=== PATIENT | male | born 1965 | race American Indian/Alaskan Native ===

== ENCOUNTER 2020-11-21 19:53 | Emergency (ER) | payer MEDICAID ==
[2020-11-21 21:51] LABS: Basophils # (Auto) 0.1 K/mm3 (0.0-0.1); Basophils % (Auto) 1.6 % (0.0-1.8); Eosinophils # (Auto) 0.1 K/mm3 (0.0-0.4); Eosinophils % (Auto) 1.9 % (0.0-4.3); Hematocrit 46.4 % (35.5-45.6); Hemoglobin 15.8 gm/dl (11.8-15.2); Lymphocytes # (Auto) 1.5 K/mm3 (1.2-5.4); Lymphocytes % (Auto) 33.3 % (13.4-35.0); Mean Corpuscular HGB Conc 34 % (32-34); Mean Corpuscular Volume 93 fl (84-94); Monocytes # (Auto) 0.5 K/mm3 (0.0-0.8); Monocytes % (Auto) 10.7 % (0.0-7.3); Platelet Count 180 K/mm3 (140-440)
[2020-11-21 21:56] LABS: BUN/Creatinine Ratio 11; Blood Urea Nitrogen 9 mg/dL (9-20); Calcium 9.1 mg/dL (8.4-10.2); Hemolysis Index 4
--- NOTE | 2020-11-21 23:18 | Emergency Department Report ---
ED Psych HPI - General Chief Complaint: Psych Stated Complaint: SI/HOMICIDAL/DETOX Time Seen by Provider: 11/21/20 23:10 Source: patient Mode of arrival: Ambulatory - History of Present Illness Initial Comments: 55-year-old male, history of bipolar disorder, presents to ED with suicidal ideation. Patient states, "My life just not worth living." Patient states he plans to jump off of a bridge. He reports crack cocaine and marijuana use. Patient also reports alcohol abuse. Patient states he is compliant with his psychiatric medications. MD Complaint: feels depressed -: unknown Associated Psychiatric Symptoms: depression, suicidal ideation Improves With: none Worsens With: none Context: recent alcohol abuse, recent drug abuse Associated Symptoms: denies other symptoms Treatments Prior to Arrival: none If Self Harm: has plan Details of Plan: Jump off of a bridge - Related Data Allergies Allergy/AdvReac Type Severity Reaction Status Date / Time Sulfa (Sulfonamide Allergy Rash Verified 11/21/20 21:03 Antibiotics) ED Review of Systems ROS: Stated complaint: SI/HOMICIDAL/DETOX Other details as noted in HPI Comment: All other systems reviewed and negative Psychiatric: suicidal thoughts ED Past Medical Hx - Past Medical History Previous Medical History?: Yes Hx Psychiatric Treatment: Yes ED Physical Exam - General Limitations: No Limitations General appearance: alert, in no apparent distress - Head Head exam: Present: atraumatic, normocephalic - Eye Eye exam: Present: normal appearance, EOMI - ENT ENT exam: Present: mucous membranes moist - Neck Neck exam: Present: normal inspection - Respiratory Respiratory exam: Present: normal lung sounds bilaterally. Absent: respiratory distress - Cardiovascular Cardiovascular Exam: Present: regular rate, normal rhythm - GI/Abdominal GI/Abdominal exam: Absent: distended - Extremities Exam Extremities exam: Present: normal inspection - Neurological Exam Neurological exam: Present: alert, oriented X3 - Psychiatric Psychiatric exam: Present: suicidal ideation - Skin Skin exam: Present: warm, dry, intact, normal color ED Course Vital Signs 11/21/20 11/22/20 11/22/20 21:33 01:41 03:24 Temperature 98 F Pulse Rate 88 112 H Respiratory 16 18 Rate Blood Pressure 144/89 126/90 [Right] O2 Sat by Pulse 98 97 98 Oximetry 11/22/20 11/22/20 11/23/20 07:35 19:36 08:16 Temperature 98.0 F 98.1 F 97.9 F Pulse Rate 72 61 83 Respiratory 20 18 20 Rate Blood Pressure 114/84 110/77 111/87 [Right] O2 Sat by Pulse 98 98 98 Oximetry 11/23/20 11/23/20 09:00 20:03 Temperature 97.9 F Pulse Rate 63 Respiratory 18 Rate Blood Pressure 128/91 [Right] O2 Sat by Pulse 98 98 Oximetry ED Medical Decision Making - Lab Data Result diagrams: 11/21/20 21:22 11/23/20 19:03 - Medical Decision Making 55-year-old male presents to ED with suicidal ideations. Patient reports drug and alcohol abuse. Labs reviewed, potassium slightly low, was replaced orally. Still awaiting urine for UA and urine drug screen. Otherwise, patient is medically clear for mental health evaluation. Will dispo per psych. Critical care attestation.: If time is entered above; I have spent that time in minutes in the direct care of this critically ill patient, excluding procedure time. ED Disposition Clinical Impression: Bipolar disorder Disposition: [address] [place] [address] Is pt being admited?: No Condition: Stable Referrals: JACQUI PACKER MD [Primary Care Provider] - 3-5 Days
[2020-11-21] MEDS ORDERED: POTASSIUM CHLORIDE ER 20 MEQ TAB PO ONE (23:19)
[2020-11-22 07:42] LABS: Bilirubin,Urine NEG (Negative); Blood,Urine NEG (Negative); Color,Urine Yellow (Yellow); Protein,Urine <15 mg/dL mg/dL (Negative); RBC,Urine < 1.0 /HPF (0.0-6.0); WBC,Urine < 1.0 /HPF (0.0-6.0)
[2020-11-22 07:45] LABS: Amphetamine Screen,Urine Negative; Benzodiazepines Screen,Urine Negative; Methadone Screen,Urine Negative; Opiate Screen,Urine Negative
[2020-11-22 08:16] LABS: Cannabinoid Screen,Urine Positive; Cocaine Screen,Urine Positive
--- NOTE | 2020-11-22 10:05 | Consultation ---
History of Present Illness - Reason for Consult Consult date: 11/22/20 Reason for consult: SI/HI, detox - History of Present Psychiatric Illness Rubin Lainez is a 55y/o male patient who endorses suicidal and homicidal thoughts. The patient says he has plans to jump in front of a bridge. He also says he needs detox from crack, marijuana and alcohol. He says he drinks a case of beer daily. He says he has a history of bipolar and takes abilify and elavil. He did not recall the dosages. The patient says he has taken the meds on and off. He denies hallucinations. PAST PSYCHIATRIC HISTORY: Diagnoses: Bipolar Suicide attempts or Self-harm behavior: Denies Prior psychiatric hospitalizations: yes Substance Abuse history: THC, crack, alcohol, nicotine Previous psychiatric medications tried: abilify, elavil Outpatient treatment: yes PAST MEDICAL HISTORY: None reported or document Family Psychiatric History: None reported or documented SOCIAL HISTORY Marital Status: Single Living Arrangements: homeless Employment Status: disabled Access to guns/weapons: denies Education: History of Abuse: denies Legal History: denies REVIEW OF SYSTEMS Constitutional: Negative for weight loss ENT: Negative for stridor Respiratory: Negative for cough or hemoptysis All other systems reviewed and are negative MENTAL STATUS EXAMINATION General Appearance and Behavior: Age appropriate, good hygiene, wearing appropriate clothes, calm and cooperative polite with questioning. Cooperation: engaged Psychomotor Behavior: Psychomotor normal Mood: depressed Affect and affective range: congruent with stated mood Thought Process: goal directed Thought Content: SI/HI Speech: Normal volume, Regular rate and rhythm, Suicidal Ideation: yes with plan to jump off bridge Homicidal Ideation: Yes Hallucinations: Denies Delusions: None elicited Impulse Control: Unimpaired Insight and Judgment: Limited Memory: Limited Attention: attentive Orientation: a/o Assessment and Plan (1) Bipolar Disorder Current Visit: Yes Status: Acute Treatment Plan 1013 Abilify 5mg po daily Elavil 10mg po qhs Thiamine 100mg po daily Multivit daily Folic 1mg po daily CIWA protocol The patient to comply with previously prescribed medications Risks, benefits and alternatives of medications discussed with the patient, questions answered and consent obtained from patient. PSYCHOTHERAPY: Supportive psychotherapy provided MEDICAL: Per primary team DELIRIUM PRECAUTIONS: Please re-orient patient frequently, keep lights on during the day, and minimize benzodiazepines and opiates as these medications could worsen patient's confusion. TALENT ACQUISITION LEAD: Defer to primary DISPOSITION: Recommend acute inpatient psychiatric hospitalization at this time. FOLLOW-UP: Will follow Thank you for the consult. Please contact with any questions and/or concerns. Medications and Allergies Allergies Allergy/AdvReac Type Severity Reaction Status Date / Time Sulfa (Sulfonamide Allergy Rash Verified 11/21/20 21:03 Antibiotics) Mental Status Exam - Vital signs Last Vital Signs Temp 98.0 F 11/22/20 07:35 Pulse 72 11/22/20 07:35 Resp 20 11/22/20 07:35 BP 114/84 11/22/20 07:35 Pulse Ox 98 11/22/20 07:35 Results Result Diagrams: 11/21/20 21:22 11/21/20 21:22 Abnormal lab results 11/21/20 11/21/20 11/21/20 Range/Units 21:22 21:22 21:22 WBC (4.5-11.0) K/mm3 Hgb (11.8-15.2) gm/dl Hct (35.5-45.6) % RDW (13.2-15.2) % [place] % (Auto) (0.0-7.3) % Potassium 3.4 L (3.6-5.0) mmol/L Salicylates < 0.3 L (2.8-20.0) mg/dL Acetaminophen 5.0 L (10.0-30.0) ug/mL 11/21/20 Range/Units 21:22 WBC 4.4 L (4.5-11.0) K/mm3 Hgb 15.8 H (11.8-15.2) gm/dl Hct 46.4 H (35.5-45.6) % RDW 16.0 H (13.2-15.2) % [place] % (Auto) 10.7 H (0.0-7.3) % Potassium (3.6-5.0) mmol/L Salicylates (2.8-20.0) mg/dL Acetaminophen (10.0-30.0) ug/mL All other labs normal.
[2020-11-22] MEDS ORDERED: chlordiazePOXIDE 25 MG CAP PO PRN (10:06)
[2020-11-22] MEDS ORDERED: LORazepam 2 MG/ML VIAL IM PRN (10:06)
--- NOTE | 2020-11-22 10:20 | Event Note ---
Date: 11/22/20 This patient presented overnight with depression and suicidal ideations with a plan to jump off a bridge. He was medically cleared by my colleague. He was seen by the psychiatric team today who feels the patient requires a 1013 and inpatient stabilization and this was initiated. No new medications for reconciliation. Vital signs reassuring throughout his ED course thus far. We will continue to monitor throughout ED course. Vital Signs - 24 hr 11/21/20 11/22/20 11/22/20 21:33 01:41 03:24 Temperature 98 F Pulse Rate 88 112 H Respiratory 16 18 Rate Blood Pressure 144/89 126/90 [Right] O2 Sat by Pulse 98 97 98 Oximetry 11/22/20 07:35 Temperature 98.0 F Pulse Rate 72 Respiratory 20 Rate Blood Pressure 114/84 [Right] O2 Sat by Pulse 98 Oximetry
[2020-11-22] MEDS: FOLIC ACID 1 MG TAB PO SCH (11:32)
[2020-11-22] MEDS: ARIPiprazole 5 MG TAB PO SCH (11:32)
[2020-11-22] MEDS: MULTIVITAMINS ,THERAPEUTIC TAB PO SCH (11:32)
[2020-11-22] MEDS: THIAMINE 100 MG TAB PO SCH (11:32)
[2020-11-22] MEDS: NICOTINE 21 MG/24 HR PATCH TD SCH (11:32)
[2020-11-22] MEDS: AMITRIPTYLINE 10 MG TAB PO SCH (23:09)
[2020-11-23] MEDS: ARIPiprazole 5 MG TAB PO SCH (11:00)
[2020-11-23] MEDS: FOLIC ACID 1 MG TAB PO SCH (11:00)
[2020-11-23] MEDS: MULTIVITAMINS ,THERAPEUTIC TAB PO SCH (11:00)
[2020-11-23] MEDS: THIAMINE 100 MG TAB PO SCH (11:00)
[2020-11-23] MEDS: NICOTINE 21 MG/24 HR PATCH TD SCH (11:00)
--- NOTE | 2020-11-23 11:00 | Progress Note ---
Subjective - Reason for Consult Consult date: 11/23/20 Reason for consult: SI - Chief Complaint Chief complaint: The patient was seen today. He is a/o x 3. He still endorses SI with a plan to jump off of bridge. He says he is depressed. He denies hallucinations. REVIEW OF SYSTEMS Constitutional: Negative for weight loss ENT: Negative for stridor Respiratory: Negative for cough or hemoptysis All other systems reviewed and are negative MENTAL STATUS EXAMINATION General Appearance and Behavior: Age appropriate, good hygiene, wearing appropriate clothes, calm and cooperative polite with questioning. Cooperation: engaged Psychomotor Behavior: Psychomotor normal Mood: depressed Affect and affective range: congruent with stated mood Thought Process: goal directed Thought Content: SI/HI Speech: Normal volume, Regular rate and rhythm, Suicidal Ideation: yes with plan to jump off bridge Homicidal Ideation: Yes Hallucinations: Denies Delusions: None elicited Impulse Control: Unimpaired Insight and Judgment: Limited Memory: Limited Attention: attentive Orientation: a/o Assessment and Plan (1) Bipolar Disorder Current Visit: Yes Status: Acute Treatment Plan 1013 continue Abilify 5mg po daily Contnue Elavil 10mg po qhs Continue Thiamine 100mg po daily Continue Multivit daily Continue Folic 1mg po daily CIWA protocol The patient to comply with previously prescribed medications Risks, benefits and alternatives of medications discussed with the patient, questions answered and consent obtained from patient. PSYCHOTHERAPY: Supportive psychotherapy provided MEDICAL: Per primary team DELIRIUM PRECAUTIONS: Please re-orient patient frequently, keep lights on during the day, and minimize benzodiazepines and opiates as these medications could worsen patient's confusion. DIRECTOR CLINICAL INFORMATION SERVICES: Defer to primary DISPOSITION: Recommend acute inpatient psychiatric hospitalization at this time. FOLLOW-UP: Will follow Thank you for the consult. Please contact with any questions and/or concerns. Mental Status Exam - Vital signs Last Vital Signs Temp 97.9 F 11/23/20 08:16 Pulse 83 11/23/20 08:16 Resp 20 11/23/20 08:16 BP 111/87 11/23/20 08:16 Pulse Ox 98 11/23/20 08:16
[2020-11-23] MEDS ORDERED: SERTRALINE 25 MG TAB PO SCH (12:00)
[2020-11-23 20:04] VITALS: BP 128/91
[2020-11-23 20:08] LABS: Alanine Aminotransferase 21 units/L (7-56); Albumin 3.7 g/dL (3.9-5); Blood Urea Nitrogen 12 mg/dL (9-20); Calcium 9.6 mg/dL (8.4-10.2); Hemolysis Index 7
[2020-11-23 20:10] LABS: BUN/Creatinine Ratio 17
[2020-11-23] MEDS: AMITRIPTYLINE 10 MG TAB PO SCH (23:40)
== END 2020-11-24 01:00 ==
LOC: ED 19:53
DX: F31.9 Bipolar disorder, unspecified (principal); Z88.2 Allergy status to sulfonamides; Z20.822 Contact with and (suspected) exposure to COVID-19
CPT/HCPCS: 36415; 80048; 80053; 80307; 81001; 85025; 99285; U0003; 80320; G0480

== ENCOUNTER 2020-11-24 01:45 | Inpatient (IN) | payer MEDICAID ==
--- NOTE | 2020-11-24 09:02 | History and Physical Report ---
GP History & Physical - History of Present Illness Date of admission: 11/23/20 Date of Examination: 11/24/20 Reason for Admission: Danger to self, Failure of Outpatient Treatment, Severe anxiety/depression History of Present Illness: Rubin Abreu is a 55y/o male patient who I first rounded on in the ER for last couple of days. He endorses SI with plan to jump off of a bridge. He also verbalizes hallucinations of "loud voices that he can't make out." The patient says he uses "weed, alcohol and crack." He says he needs detox. He states he is very depressed. PAST PSYCHIATRIC HISTORY: Diagnoses: Bipolar Suicide attempts or Self-harm behavior: Denies Prior psychiatric hospitalizations: yes Substance Abuse history: THC, crack, alcohol, nicotine Previous psychiatric medications tried: jonny vergara Outpatient treatment: yes PAST MEDICAL HISTORY: None reported or document Family Psychiatric History: None reported or documented SOCIAL HISTORY Marital Status: Single Living Arrangements: homeless Employment Status: disabled Access to guns/weapons: denies Education: History of Abuse: denies Legal History: denies REVIEW OF SYSTEMS Constitutional: Negative for weight loss ENT: Negative for stridor Respiratory: Negative for cough or hemoptysis All other systems reviewed and are negative MENTAL STATUS EXAMINATION General Appearance and Behavior: Age appropriate, good hygiene, wearing appropriate clothes, calm and cooperative polite with questioning. Cooperation: engaged Psychomotor Behavior: Psychomotor normal Mood: depressed Affect and affective range: congruent with stated mood Thought Process: goal directed Thought Content: SI/HI Speech: Normal volume, Regular rate and rhythm, Suicidal Ideation: yes with plan to jump off bridge Homicidal Ideation: Yes Hallucinations: Denies Delusions: None elicited Impulse Control: Unimpaired Insight and Judgment: Limited Memory: Limited Attention: attentive Orientation: a/o Assessment and Plan (1) Bipolar Disorder (2) Polysubstance Abuse Current Visit: Yes Status: Acute Treatment Plan Patient admitted for inpatient psychiatric evaluation, medication adjustment an d close monitoring The patient's behavior, mood, sleep and appetite will be closely monitored. Patient enrolled in individual and group therapeutic sessions and encouraged to attend. Patient provided with a safe and structured environment. Patient's physical health needs will be addressed by the Hospitalist. Hospitalist Consulted Labs including CBC, CMP, Lipid profile and Hemoglobin A1C levels ordered for baseline reference Social Assessment will be completed and the Design/Animation Instructor will work with patient and family to ensure a suitable and safe disposition Medication adjustment will be made as clinically indicated CIWA Nicotine patch 21mg daily Continue home meds Usual Wellness Episcopal/Preservation: - Start Trazodone 50 mg po QHS & 50 mg po QHS PRN between 10 PM & 2 AM for insomnia - Start Melatonin 5 mg po QHS to promote circadian rhythm The patient agreed on the treatment plan, understood the risk, benefit, alternative treatment, potential consequence of no treatment, and gave informed consent. Estimated days: 6 Post hospital care: primary care provider, psychiatric provider Case staffed with Dr. Powell Legal Status: Voluntary Reaction to Hospitalization: Accepting Medications and Allergies Allergies Allergy/AdvReac Type Severity Reaction Status Date / Time Sulfa (Sulfonamide Allergy Intermediate Rash Verified 11/24/20 02:05 Antibiotics) Home Medications Medication Instructions Recorded Confirmed Last Taken Type ARIPiprazole [Abilify TAB] 5 mg PO HS 11/24/20 11/24/20 Unknown History Acetaminophen [Tylenol] 650 mg PO Q6HR PRN 11/24/20 11/24/20 Unknown History Amitriptyline [Elavil] 25 mg PO QHS 11/24/20 11/24/20 Unknown History Bictegrav/Emtricit/Tenofov Ala 1 each PO DAILY 11/24/20 11/24/20 Unknown History [Biktarvy 50-200-25 mg Tablet] Dapsone 100 mg PO DAILY 11/24/20 11/24/20 Unknown History Fluconazole [Diflucan TAB] 200 mg PO QDAY 11/24/20 11/24/20 Unknown History Fluticasone [Flonase] 1 spray NS QDAY PRN 11/24/20 11/24/20 Unknown History Gabapentin 300 mg PO TID 11/24/20 11/24/20 Unknown History Ibuprofen [Motrin] 400 mg PO Q6HR PRN 11/24/20 11/24/20 Unknown History Omeprazole 40 mg PO DAILY 11/24/20 11/24/20 Unknown History Results - Results Labs/Vitals: Laboratory Last Values POC Glucose 104 mg/dL (70-105) 11/24/20 02:34 Last Vital Signs Temp 100.6 F H 11/24/20 08:39 Pulse 101 H 11/24/20 08:39 Resp 20 11/24/20 08:39 BP 130/89 11/24/20 08:39 Pulse Ox 97 11/24/20 08:39 Physical Examination - Constitutional Vitals: Vital Signs Temp Pulse Resp BP Pulse Ox 100.6 F H 101 H 20 130/89 97 11/24/20 08:39 11/24/20 08:39 11/24/20 08:39 11/24/20 08:39 11/24/20 08:39 Temperature -Last 24 Hours Temperature 100.6 F Temperature 98.7 F Mental Status Exam - Vital signs Last Vital Signs Temp 100.6 F H 11/24/20 08:39 Pulse 101 H 11/24/20 08:39 Resp 20 11/24/20 08:39 BP 130/89 11/24/20 08:39 Pulse Ox 97 11/24/20 08:39 Physician Certification - Certification Statement Physician Certification Statement: This is an acknowledgement statement that RUBIN ABREU is a 55 year old M who requires inpatient psychiatric admission for treatment which could reasonably be expected to improve the patient's condition for Estimated period of time patient will need to remain in the hospital: [ ] Plan for post-hospital care: [ ]
[2020-11-24] MEDS ORDERED: NON-FORMULARY EACH (Acetaminophen [Tylenol] 325 MG Capsule) PO PRN (09:06)
[2020-11-24] MEDS ORDERED: chlordiazePOXIDE 25 MG CAP PO PRN (09:11)
[2020-11-24] MEDS ORDERED: NON-FORMULARY EACH (Bictegrav/Emtricit/Tenofov Ala [Biktarvy 50-200-25 Mg Tablet] 1 EACH T PO SCH (10:00)
[2020-11-24] MEDS ORDERED: NON-FORMULARY EACH (Omeprazole [Omeprazole] 40 MG Capsule.Dr) PO SCH (10:00)
[2020-11-24] MEDS ORDERED: LORazepam 2 MG/ML VIAL IV PRN (10:00)
--- NOTE | 2020-11-24 10:01 | Progress Note ---
Assessment and Plan #1 bipolar disorder-agree current psych recommendations. Inpatient treatment ideal for him. Drug rehabilitation also seems to be important for keeping patient out of the hospital in the future. Continue antidepressant as you are doing. #2 HIV-continue present medications antiretrovirals if patient remains compliant. In the future compliance may be an issue #3 knee pain suspect arthritis. Add x-ray right knee Celebrex 200 mg daily for 7 days. Subjective Date of service: 11/24/20 Principal diagnosis: Suicidal ideations Interval history: 55-year-old male with a history of HIV, hepatitis C presents with suicidal ideations. Patient states he hears voices telling him a wide range of things. Patient stated he has been very depressed wanted to jump off a bridge. Voices concerns for his depression and persistent drug use including alcohol, marijuana and crack cocaine use.. Patient complained today of right knee pain. Stated it just started hurting. Described as achy stiff. Nonradiating Objective - Constitutional Vitals: Vital Signs - 12hr 11/24/20 11/24/20 02:30 08:39 Temperature 98.7 F 100.6 F H Pulse Rate 97 H 101 H Respiratory 18 20 Rate Blood Pressure 128/98 130/89 O2 Sat by Pulse 99 97 Oximetry General appearance: Present: no acute distress, well-nourished - EENT Eyes: PERRL, EOM intact ENT: hearing intact, clear oral mucosa Ears: bilateral: normal - Neck Neck: supple, normal ROM - Respiratory Respiratory effort: normal Respiratory: bilateral: CTA - Breasts Breasts: normal - Cardiovascular Rhythm: regular Heart Sounds: Present: S1 & S2. Absent: gallop, rub Extremities: pulses intact, No edema, normal color, Full ROM Extremity abnormal: other (Right knee mild bony protuberance. No clear pain upon palpation.) - Gastrointestinal General gastrointestinal: Present: soft, non-tender, non-distended, normal bowel sounds - Genitourinary Male genitourinary: normal - Integumentary Integumentary: clear, warm, dry - Musculoskeletal Musculoskeletal: 1, strength equal bilaterally - Neurologic Neurologic: moves all extremities - Psychiatric Psychiatric: memory intact, appropriate mood/affect, intact judgment & insight - Labs CBC & Chem 7: 11/24/20 11:29 11/24/20 11:29
[2020-11-24] MEDS: FLUCONAZOLE 200 MG TAB PO SCH (11:01)
[2020-11-24] MEDS: DAPSONE 100 MG PO SCH (11:01)
[2020-11-24] MEDS: PANTOPRAZOLE 40 MG TAB PO SCH (11:01)
[2020-11-24] MEDS: ACETAMINOPHEN 325 MG TAB PO PRN ×2 (11:01→21:08)
[2020-11-24] MEDS: NICOTINE 21 MG/24 HR PATCH TD SCH (11:01)
[2020-11-24 11:57] LABS: Hematocrit 44.6 % (35.5-45.6); Hemoglobin 15.5 gm/dl (11.8-15.2); Mean Corpuscular HGB Conc 35 % (32-34); Mean Corpuscular Volume 91 fl (84-94); Platelet Count 169 K/mm3 (140-440); Red Cell Distribution Width 15.5 % (13.2-15.2)
[2020-11-24] MEDS ORDERED: IBUPROFEN 400 MG TAB PO PRN (12:00)
[2020-11-24 12:16] LABS: Alanine Aminotransferase 25 units/L (7-56); Albumin 3.7 g/dL (3.9-5); Blood Urea Nitrogen 9 mg/dL (9-20); Calcium 9.2 mg/dL (8.4-10.2); Chol/HDL Ratio 2.64 %; HDL Cholesterol 42 mg/dL (40-59); Hemolysis Index 9; LDL Cholesterol,Direct 67 mg/dL (50-130)
[2020-11-24 12:30] LABS: BUN/Creatinine Ratio 13
[2020-11-24 12:36] LABS: Platelet Estimate Consistent w Auto; RBC Morphology Normal; Total Cells Counted 100
[2020-11-24] MEDS: GABAPENTIN 300 MG CAP PO SCH ×3 (14:19→21:07)
--- NOTE | 2020-11-24 17:50 | XRay Report ---
RIGHT KNEE 4 VIEWS INDICATION: rt knee pain. COMPARISON: No relevant prior imaging study available. FINDINGS: No acute, displaced fracture or dislocation is seen. No significant effusion. Moderate to advanced tricompartmental osteoarthrosis is noted greatest at the patellofemoral compartm ent. IMPRESSION: 1. No acute findings. Signer Name: Angelo Peña MD Signed: 11/24/2020 5:46 PM Workstation Name: [id number]
[2020-11-24] MEDS: CELECOXIB 200 MG CAP PO SCH (18:03)
[2020-11-24] MEDS: AMITRIPTYLINE 25 MG TAB PO SCH (21:07)
[2020-11-24] MEDS ORDERED: ARIPiprazole 5 MG TAB PO SCH (22:00)
[2020-11-25] MEDS: BICTEGRAV/EMTRICIT/TENOFOV ALA (NF) TAB PO SCH (09:44)
[2020-11-25] MEDS: PANTOPRAZOLE 40 MG TAB PO SCH (09:45)
[2020-11-25] MEDS: DAPSONE 100 MG PO SCH (09:45)
[2020-11-25] MEDS: NICOTINE 21 MG/24 HR PATCH TD SCH (09:46)
[2020-11-25] MEDS: CELECOXIB 200 MG CAP PO SCH (09:46)
--- NOTE | 2020-11-25 10:13 | Progress Note ---
Subjective - Reason for Consult Consult date: 11/25/20 Reason for consult: SI - Chief Complaint Chief complaint: The patient was seen today, he is sleeping but easily arouses. He endorses suicidal thoughts with plans to jump off a bridge. He denies hallucinations. REVIEW OF SYSTEMS Constitutional: Negative for weight loss ENT: Negative for stridor Respiratory: Negative for cough or hemoptysis All other systems reviewed and are negative MENTAL STATUS EXAMINATION General Appearance and Behavior: Age appropriate, good hygiene, wearing appropriate clothes, calm and cooperative polite with questioning. Cooperation: engaged Psychomotor Behavior: Psychomotor normal Mood: depressed Affect and affective range: congruent with stated mood Thought Process: goal directed Thought Content: SI/HI Speech: Normal volume, Regular rate and rhythm, Suicidal Ideation: yes with plan to jump off bridge Homicidal Ideation: Yes Hallucinations: Denies Delusions: None elicited Impulse Control: Unimpaired Insight and Judgment: Limited Memory: Limited Attention: attentive Orientation: a/o Assessment and Plan (1) Bipolar Disorder (2) Polysubstance Abuse Current Visit: Yes Status: Acute Treatment Plan Patient admitted for inpatient psychiatric evaluation, medication adjustment and close monitoring The patient's behavior, mood, sleep and appetite will be closely monitored. Patient enrolled in individual and group therapeutic sessions and encouraged to attend. Patient provided with a safe and structured environment. Patient's physical health needs will be addressed by the Hospitalist. Hospitalist Consulted Labs including CBC, CMP, Lipid profile and Hemoglobin A1C levels ordered for baseline reference Social Assessment will be completed and the Chemist Proteins will work with patient and family to ensure a suitable and safe disposition Medication adjustment will be made as clinically indicated Increase Abilify 5mg po daily Usual Wellness Jain/Preservation: - Start Trazodone 50 mg po QHS & 50 mg po QHS PRN between 10 PM & 2 AM for insomnia - Start Melatonin 5 mg po QHS to promote circadian rhythm The patient agreed on the treatment plan, understood the risk, benefit, alternative treatment, potential consequence of no treatment, and gave informed consent. Estimated days: 6 Post hospital care: primary care provider, psychiatric provider Case staffed with Dr. Powell Mental Status Exam - Vital signs Last Vital Signs Temp 98.1 F 11/25/20 08:25 Pulse 66 11/25/20 08:25 Resp 18 11/25/20 09:46 BP 121/91 11/25/20 08:25 Pulse Ox 99 11/25/20 08:25
[2020-11-25] MEDS: GABAPENTIN 300 MG CAP PO SCH ×3 (10:38→21:04)
[2020-11-25] MEDS: FLUCONAZOLE 200 MG TAB PO SCH (11:51)
[2020-11-25] MEDS: AMITRIPTYLINE 25 MG TAB PO SCH (21:03)
[2020-11-26] MEDS: GABAPENTIN 300 MG CAP PO SCH ×3 (08:54→21:05)
--- NOTE | 2020-11-26 10:01 | Progress Note ---
Subjective Date of service: 11/26/20 Principal diagnosis: Suicidal ideations Subjective Comment: The patient was seen today. He is lying in bed. He is vague in describing how he feels. He says "okay" when asked. I asked was he suicidal still, he says "yea." I asked did he have a plan, he says "yea the same thing." He denies hallucinations. REVIEW OF SYSTEMS Constitutional: Negative for weight loss ENT: Negative for stridor Respiratory: Negative for cough or hemoptysis All other systems reviewed and are negative MENTAL STATUS EXAMINATION General Appearance and Behavior: Age appropriate, good hygiene, wearing appropriate clothes, calm and cooperative polite with questioning. Cooperation: engaged Psychomotor Behavior: Psychomotor normal Mood: depressed Affect and affective range: congruent with stated mood Thought Process: goal directed Thought Content: SI/HI Speech: Normal volume, Regular rate and rhythm, Suicidal Ideation: yes with plan to jump off bridge Homicidal Ideation: Yes Hallucinations: Denies Delusions: None elicited Impulse Control: Unimpaired Insight and Judgment: Limited Memory: Limited Attention: attentive Orientation: a/o Assessment and Plan (1) Bipolar Disorder (2) Polysubstance Abuse Current Visit: Yes Status: Acute Treatment Plan Patient admitted for inpatient psychiatric evaluation, medication adjustment and close monitoring The patient's behavior, mood, sleep and appetite will be closely monitored. Patient enrolled in individual and group therapeutic sessions and encouraged to attend. Patient provided with a safe and structured environment. Patient's physical health needs will be addressed by the Hospitalist. Hospitalist Consulted Labs including CBC, CMP, Lipid profile and Hemoglobin A1C levels ordered for baseline reference Social Assessment will be completed and the Pouncer will work with patient and family to ensure a suitable and safe disposition Medication adjustment will be made as clinically indicated No changes made today Usual Wellness Taoist/Preservation: - Start Trazodone 50 mg po QHS & 50 mg po QHS PRN between 10 PM & 2 AM for insomnia - Start Melatonin 5 mg po QHS to promote circadian rhythm The patient agreed on the treatment plan, understood the risk, benefit, alternative treatment, potential consequence of no treatment, and gave informed consent. Estimated days: 5 Post hospital care: primary care provider, psychiatric provider Case staffed with Dr. Powell Medications and Allergies Allergies Allergy/AdvReac Type Severity Reaction Status Date / Time Sulfa (Sulfonamide Allergy Intermediate Rash Verified 11/24/20 02:05 Antibiotics) Home Medications Medication Instructions Recorded Confirmed Last Taken Type ARIPiprazole [Abilify TAB] 5 mg PO HS 11/24/20 11/24/20 Unknown History Acetaminophen [Tylenol] 650 mg PO Q6HR PRN 11/24/20 11/24/20 Unknown History Amitriptyline [Elavil] 25 mg PO QHS 11/24/20 11/24/20 Unknown History Bictegrav/Emtricit/Tenofov Ala 1 each PO DAILY 11/24/20 11/24/20 Unknown History [Biktarvy 50-200-25 mg Tablet] Dapsone 100 mg PO DAILY 11/24/20 11/24/20 Unknown History Fluconazole [Diflucan TAB] 200 mg PO QDAY 11/24/20 11/24/20 Unknown History Fluticasone [Flonase] 1 spray NS QDAY PRN 11/24/20 11/24/20 Unknown History Gabapentin 300 mg PO TID 11/24/20 11/24/20 Unknown History Ibuprofen [Motrin] 400 mg PO Q6HR PRN 11/24/20 11/24/20 Unknown History Omeprazole 40 mg PO DAILY 11/24/20 11/24/20 Unknown History Active Meds: Active Medications Acetaminophen (Acetaminophen 325 Mg Tab) 650 mg PO Q6H PRN PRN Reason: Pain, Mild (1-3) Last Admin: 11/24/20 21:08 Dose: 650 mg Documented by: Amitriptyline HCl (Amitriptyline 25 Mg Tab) 25 mg PO QHS [facility] Last Admin: 11/25/20 21:03 Dose: 25 mg Documented by: Aripiprazole (Aripiprazole 10 Mg Tab) 10 mg PO QDAY [facility] Celecoxib (Celecoxib 200 Mg Cap) 200 mg PO QDAY [facility] Last Admin: 11/25/20 09:46 Dose: 200 mg Documented by: Chlordiazepoxide HCl (Chlordiazepoxide 25 Mg Cap) 50 mg PO Q1HR PRN PRN Reason: CIWA-Ar 8-15 Dapsone (Dapsone 100mg Tab) 100 mg PO DAILY [facility] Last Admin: 11/25/20 09:45 Dose: 100 mg Documented by: Fluconazole (Fluconazole 200 Mg Tab) 200 mg PO QDAY [facility]; Protocol Stop: 12/07/20 10:01 Last Admin: 11/25/20 11:51 Dose: 200 mg Documented by: Fluticasone Propionate (Fluticasone Propionate Nasal [place] 16 Gm) 50 mcg NS QDAY PRN PRN Reason: Allergy Symptoms Gabapentin (Gabapentin 300 Mg Cap) 300 mg PO TID [facility] Last Admin: 11/26/20 08:54 Dose: Not Given Documented by: Ibuprofen (Ibuprofen 400 Mg Tab) 400 mg PO Q6HR PRN PRN Reason: Pain, Moderate (4-6) Lorazepam (Lorazepam 2 Mg/Ml Vial) 2 mg IV Q4H PRN PRN Reason: CIWA-Ar 16-25 Nicotine (Nicotine 21 Mg/24 Hr Patch) 21 mg TD QDAY [facility] Last Admin: 11/25/20 09:46 Dose: 21 mg Documented by: Pantoprazole Sodium (Pantoprazole 40 Mg Tab) 40 mg PO DAILY [facility] Last Admin: 11/25/20 09:45 Dose: 40 mg Documented by: Results - Results Labs/Vitals: Laboratory Last Values WBC 4.0 K/mm3 (4.5-11.0) L 11/24/20 11:29 RBC 4.90 M/mm3 (3.65-5.03) 11/24/20 11:29 Hgb 15.5 gm/dl (11.8-15.2) H 11/24/20 11:29 Hct 44.6 % (35.5-45.6) 11/24/20 11:29 MCV 91 fl (84-94) 11/24/20 11:29 MCH 32 pg (28-32) 11/24/20 11:29 MCHC 35 % (32-34) H 11/24/20 11:29 RDW 15.5 % (13.2-15.2) H 11/24/20 11:29 Plt Count 169 K/mm3 (140-440) 11/24/20 11:29 Add Manual Diff Complete 11/24/20 11:29 Total Counted 100 11/24/20 11:29 Seg Neuts % (Manual) 62.0 % (40.0-70.0) 11/24/20 11:29 Lymphocytes % (Manual) 23.0 % (13.4-35.0) 11/24/20 11:29 Reactive Lymphs % (Man) 2.0 % 11/24/20 11:29 Monocytes % (Manual) 13.0 % (0.0-7.3) H 11/24/20 11:29 Nucleated RBC % Not Reportable 11/24/20 11:29 Seg Neutrophils # Man 2.5 K/mm3 (1.8-7.7) 11/24/20 11:29 Band Neutrophils # 0.0 K/mm3 11/24/20 11:29 Lymphocytes # (Manual) 0.9 K/mm3 (1.2-5.4) L 11/24/20 11:29 Abs React Lymphs (Man) 0.1 K/mm3 11/24/20 11:29 Monocytes # (Manual) 0.5 K/mm3 (0.0-0.8) 11/24/20 11: Eosinophils # (Manual) 0.0 K/mm3 (0.0-0.4) 11/24/20 11: Basophils # (Manual) 0.0 K/mm3 (0.0-0.1) 11/24/20 11:29 Metamyelocytes # 0.0 K/mm3 11/24/20 11:29 Myelocytes # 0.0 K/mm3 11/24/20 11:29 Promyelocytes # 0.0 K/mm3 11/24/20 11:29 Blast Cells # 0.0 K/mm3 11/24/20 11:29 WBC Morphology Not Reportable 11/24/20 11:29 Hypersegmented Neuts Not Reportable 11/24/20 11:29 Hyposegmented Neuts Not Reportable 11/24/20 11:29 Hypogranular Neuts Not Reportable 11/24/20 11:29 Smudge Cells Not Reportable 11/24/20 11:29 Toxic Granulation Not Reportable 11/24/20 11:29 Toxic Vacuolation Not Reportable 11/24/20 11:29 Dohle Bodies Not Reportable 11/24/20 11:29 Pelger-Huet Anomaly Not Reportable 11/24/20 11:29 Katja Rods Not Reportable 11/24/20 11:29 Platelet Estimate Consistent w auto 11/24/20 11:29 Clumped Platelets Not Reportable 11/24/20 11:29 Plt Clumps, EDTA Not Reportable 11/24/20 11:29 Large Platelets Not Reportable 11/24/20 11:29 Giant Platelets Not Reportable 11/24/20 11:29 Platelet Satelliting Not Reportable 11/24/20 11:29 Plt Morphology Comment Not Reportable 11/24/20 11:29 RBC Morphology Normal 11/24/20 11:29 Dimorphic RBCs Not Reportable 11/24/20 11:29 Polychromasia Not Reportable 11/24/20 11:29 Hypochromasia Not Reportable 11/24/20 11:29 Poikilocytosis Not Reportable 11/24/20 11:29 Anisocytosis Not Reportable 11/24/20 11:29 Microcytosis Not Reportable 11/24/20 11:29 Macrocytosis Not Reportable 11/24/20 11:29 Spherocytes Not Reportable 11/24/20 11:29 Pappenheimer Bodies Not Reportable 11/24/20 11:29 Sickle Cells Not Reportable 11/24/20 11:29 Target Cells Not Reportable 11/24/20 11:29 Tear Drop Cells Not Reportable 11/24/20 11:29 Ovalocytes Not Reportable 11/24/20 11:29 Helmet Cells Not Reportable 11/24/20 11:29 [place]ires-[place] Bodies Not Reportable 11/24/20 11:29 [place] Rings Not Reportable 11/24/20 11:29 [place] Cells Not Reportable 11/24/20 11:29 Bite Cells Not Reportable 11/24/20 11:29 Crenated Cell Not Reportable 11/24/20 11:29 Elliptocytes Not Reportable 11/24/20 11:29 Acanthocytes (Spur) Not Reportable 11/24/20 11:29 Rouleaux Not Reportable 11/24/20 11:29 Hemoglobin C Crystals Not Reportable 11/24/20 11:29 Schistocytes Not Reportable 11/24/20 11:29 Malaria parasites Not Reportable 11/24/20 11:29 Ho Bodies Not Reportable 11/24/20 11:29 Hem Pathologist Commnt No 11/24/20 11:29 Sodium 137 mmol/L (137-145) 11/24/20 11:29 Potassium 3.8 mmol/L (3.6-5.0) 11/24/20 11:29 Chloride 102.5 mmol/L (98-107) 11/24/20 11:29 Carbon Dioxide 26 mmol/L (22-30) 11/24/20 11:29 Anion Gap 12 mmol/L 11/24/20 11:29 BUN 9 mg/dL (9-20) 11/24/20 11:29 Creatinine 0.7 mg/dL (0.8-1.3) L 11/24/20 11:29 Estimated GFR > 60 ml/min 11/24/20 11:29 BUN/Creatinine Ratio 13 % 11/24/20 11:29 Glucose 87 mg/dL (75-100) 11/24/20 11:29 POC Glucose 104 mg/dL (70-105) 11/24/20 02:34 Hemoglobin A1c 5.0 % (4-6) 11/24/20 11:29 Calcium 9.2 mg/dL (8.4-10.2) 11/24/20 11:29 Total Bilirubin 0.30 mg/dL (0.1-1.2) 11/24/20 11:29 AST 42 units/L (5-40) H 11/24/20 11:29 ALT 25 units/L (7-56) 11/24/20 11:29 Alkaline Phosphatase 69 units/L (35-129) 11/24/20 11:29 Total Protein 8.1 g/dL (6.3-8.2) 11/24/20 11:29 Albumin 3.7 g/dL (3.9-5) L 11/24/20 11:29 Albumin/Globulin Ratio 0.8 % 11/24/20 11:29 Triglycerides 74 mg/dL (2-149) 11/24/20 11:29 Cholesterol 111 mg/dL (50-199) 11/24/20 11:29 LDL Cholesterol Direct 67 mg/dL (50-130) 11/24/20 11:29 HDL Cholesterol 42 mg/dL (40-59) 11/24/20 11:29 Cholesterol/HDL Ratio 2.64 % 11/24/20 11:29 TSH 0.731 mlU/mL (0.270-4.200) 11/24/20 11:29 Last Vital Signs Temp 98.5 F 11/26/20 07:25 Pulse 80 11/26/20 07:25 Resp 18 11/26/20 07:25 BP 116/83 11/26/20 07:25 Pulse Ox 95 11/26/20 07:25
[2020-11-26] MEDS: NICOTINE 21 MG/24 HR PATCH TD SCH (10:18)
[2020-11-26] MEDS: DAPSONE 100 MG PO SCH (10:18)
[2020-11-26] MEDS: CELECOXIB 200 MG CAP PO SCH (10:18)
[2020-11-26] MEDS: ARIPiprazole 10 MG TAB PO SCH (10:18)
[2020-11-26] MEDS: BICTEGRAV/EMTRICIT/TENOFOV ALA (NF) TAB PO SCH (10:19)
[2020-11-26] MEDS: PANTOPRAZOLE 40 MG TAB PO SCH (10:19)
[2020-11-26] MEDS: FLUTICASONE PROPIONATE NASAL SPRAY 16 GM NS PRN (10:19)
[2020-11-26] MEDS: FLUCONAZOLE 200 MG TAB PO SCH (11:24)
[2020-11-26] MEDS: AMITRIPTYLINE 25 MG TAB PO SCH (21:05)
[2020-11-27] MEDS: GABAPENTIN 300 MG CAP PO SCH (08:45)
[2020-11-27] MEDS: CELECOXIB 200 MG CAP PO SCH (09:17)
[2020-11-27] MEDS: DAPSONE 100 MG PO SCH (09:18)
[2020-11-27] MEDS: PANTOPRAZOLE 40 MG TAB PO SCH (09:18)
[2020-11-27] MEDS: FLUTICASONE PROPIONATE NASAL SPRAY 16 GM NS PRN (09:18)
[2020-11-27] MEDS: BICTEGRAV/EMTRICIT/TENOFOV ALA (NF) TAB PO SCH (09:18)
[2020-11-27] MEDS: ARIPiprazole 10 MG TAB PO SCH (09:18)
[2020-11-27] MEDS: NICOTINE 21 MG/24 HR PATCH TD SCH (09:19)
[2020-11-27] MEDS: FLUCONAZOLE 200 MG TAB PO SCH (09:51)
--- NOTE | 2020-11-27 10:10 | Progress Note ---
Subjective Date of service: 11/27/20 Principal diagnosis: Suicidal ideations Subjective Comment: The patient was seen today. He is asking questions about his discharge. He says he'd like a personal half-way. He says he has "to watch his Cd4 and take his meds." He says "it affects other stuff." The patient denies SI/HI but stats he still hears voices at times, but they are not saying anything negative. The patient will discharge tomorrow once outpatient resources are in place to ensue continuity of mental wellness. REVIEW OF SYSTEMS Constitutional: Negative for weight loss ENT: Negative for stridor Respiratory: Negative for cough or hemoptysis All other systems reviewed and are negative MENTAL STATUS EXAMINATION General Appearance and Behavior: Age appropriate, good hygiene, wearing appropriate clothes, calm and cooperative polite with questioning. Cooperation: engaged Psychomotor Behavior: Psychomotor normal Mood: depressed Affect and affective range: congruent with stated mood Thought Process: goal directed Thought Content: SI/HI Speech: Normal volume, Regular rate and rhythm, Suicidal Ideation: yes with plan to jump off bridge Homicidal Ideation: Yes Hallucinations: Denies Delusions: None elicited Impulse Control: Unimpaired Insight and Judgment: Limited Memory: Limited Attention: attentive Orientation: a/o Assessment and Plan (1) Bipolar Disorder (2) Polysubstance Abuse Current Visit: Yes Status: Acute Treatment Plan Patient admitted for inpatient psychiatric evaluation, medication adjustment and close monitoring The patient's behavior, mood, sleep and appetite will be closely monitored. Patient enrolled in individual and group therapeutic sessions and encouraged to attend. Patient provided with a safe and structured environment. Patient's physical health needs will be addressed by the Hospitalist. Hospitalist Consulted Labs including CBC, CMP, Lipid profile and Hemoglobin A1C levels ordered for baseline reference Social Assessment will be completed and the Bar Hostess will work with patient and family to ensure a suitable and safe disposition Medication adjustment will be made as clinically indicated No changes made today Usual Wellness Yarsani/Preservation: - Start Trazodone 50 mg po QHS & 50 mg po QHS PRN between 10 PM & 2 AM for insomnia - Start Melatonin 5 mg po QHS to promote circadian rhythm The patient agreed on the treatment plan, understood the risk, benefit, alternative treatment, potential consequence of no treatment, and gave informed consent. Estimated days: 1 Post hospital care: primary care provider, psychiatric provider Case staffed with Dr. Powell Medications and Allergies Allergies Allergy/AdvReac Type Severity Reaction Status Date / Time Sulfa (Sulfonamide Allergy Intermediate Rash Verified 11/24/20 02:05 Antibiotics) Home Medications Medication Instructions Recorded Confirmed Last Taken Type ARIPiprazole [Abilify TAB] 5 mg PO HS 11/24/20 11/24/20 Unknown History Acetaminophen [Tylenol] 650 mg PO Q6HR PRN 11/24/20 11/24/20 Unknown History Amitriptyline [Elavil] 25 mg PO QHS 11/24/20 11/24/20 Unknown History Bictegrav/Emtricit/Tenofov Ala 1 each PO DAILY 11/24/20 11/24/20 Unknown History [Biktarvy 50-200-25 mg Tablet] Dapsone 100 mg PO DAILY 11/24/20 11/24/20 Unknown History Fluconazole [Diflucan TAB] 200 mg PO QDAY 11/24/20 11/24/20 Unknown History Fluticasone [Flonase] 1 spray NS QDAY PRN 11/24/20 11/24/20 Unknown History Gabapentin 300 mg PO TID 11/24/20 11/24/20 Unknown History Ibuprofen [Motrin] 400 mg PO Q6HR PRN 11/24/20 11/24/20 Unknown History Omeprazole 40 mg PO DAILY 11/24/20 11/24/20 Unknown History Active Meds: Active Medications Acetaminophen (Acetaminophen 325 Mg Tab) 650 mg PO Q6H PRN PRN Reason: Pain, Mild (1-3) Last Admin: 11/24/20 21:08 Dose: 650 mg Documented by: Amitriptyline HCl (Amitriptyline 25 Mg Tab) 25 mg PO QHS [facility] Last Admin: 11/26/20 21:05 Dose: 25 mg Documented by: Aripiprazole (Aripiprazole 10 Mg Tab) 10 mg PO QDAY [facility] Last Admin: 11/27/20 09:18 Dose: Not Given Documented by: Celecoxib (Celecoxib 200 Mg Cap) 200 mg PO QDAY [facility] Last Admin: 11/27/20 09:17 Dose: 200 mg Documented by: Chlordiazepoxide HCl (Chlordiazepoxide 25 Mg Cap) 50 mg PO Q1HR PRN PRN Reason: CIWA-Ar 8-15 Dapsone (Dapsone 100mg Tab) 100 mg PO DAILY [facility] Last Admin: 11/27/20 09:18 Dose: 100 mg Documented by: Fluconazole (Fluconazole 200 Mg Tab) 200 mg PO QDAY [facility] Stop: 12/07/20 10:01 Last Admin: 11/27/20 09:51 Dose: 200 mg Documented by: Fluticasone Propionate (Fluticasone Propionate Nasal [place] 16 Gm) 50 mcg NS QDAY PRN PRN Reason: Allergy Symptoms Last Admin: 11/27/20 09:18 Dose: 50 mcg Documented by: Gabapentin (Gabapentin 300 Mg Cap) 300 mg PO TID [facility] Last Admin: 11/27/20 08:45 Dose: Not Given Documented by: Ibuprofen (Ibuprofen 400 Mg Tab) 400 mg PO Q6HR PRN PRN Reason: Pain, Moderate (4-6) Lorazepam (Lorazepam 2 Mg/Ml Vial) 2 mg IV Q4H PRN PRN Reason: CIWA-Ar 16-25 Nicotine (Nicotine 21 Mg/24 Hr Patch) 21 mg TD QDAY [facility] Last Admin: 11/27/20 09:19 Dose: 21 mg Documented by: Pantoprazole Sodium (Pantoprazole 40 Mg Tab) 40 mg PO DAILY [facility] Last Admin: 11/27/20 09:18 Dose: 40 mg Documented by: Results - Results Labs/Vitals: Laboratory Last Values WBC 4.0 K/mm3 (4.5-11.0) L 11/24/20 11:29 RBC 4.90 M/mm3 (3.65-5.03) 11/24/20 11:29 Hgb 15.5 gm/dl (11.8-15.2) H 11/24/20 11:29 Hct 44.6 % (35.5-45.6) 11/24/20 11:29 MCV 91 fl (84-94) 11/24/20 11:29 MCH 32 pg (28-32) 11/24/20 11:29 MCHC 35 % (32-34) H 11/24/20 11:29 RDW 15.5 % (13.2-15.2) H 11/24/20 11:29 Plt Count 169 K/mm3 (140-440) 11/24/20 11:29 Add Manual Diff Complete 11/24/20 11:29 Total Counted 100 11/24/20 11:29 Seg Neuts % (Manual) 62.0 % (40.0-70.0) 11/24/20 11: Lymphocytes % (Manual) 23.0 % (13.4-35.0) 11/24/20 11:29 Reactive Lymphs % (Man) 2.0 % 11/24/20 11:29 Monocytes % (Manual) 13.0 % (0.0-7.3) H 11/24/20 11:29 Nucleated RBC % Not Reportable 11/24/20 11:29 Seg Neutrophils # Man 2.5 K/mm3 (1.8-7.7) 11/24/20 11:29 Band Neutrophils # 0.0 K/mm3 11/24/20 11: Lymphocytes # (Manual) 0.9 K/mm3 (1.2-5.4) L 11/24/20 11:29 Abs React Lymphs (Man) 0.1 K/mm3 11/24/20 11: Monocytes # (Manual) 0.5 K/mm3 (0.0-0.8) 11/24/20 11: Eosinophils # (Manual) 0.0 K/mm3 (0.0-0.4) 11/24/20 11:29 Basophils # (Manual) 0.0 K/mm3 (0.0-0.1) 11/24/20 11:29 Metamyelocytes # 0.0 K/mm3 11/24/20 11: Myelocytes # 0.0 K/mm3 11/24/20 11:29 Promyelocytes # 0.0 K/mm3 11/24/20 11:29 Blast Cells # 0.0 K/mm3 11/24/20 11:29 WBC Morphology Not Reportable 11/24/20 11:29 Hypersegmented Neuts Not Reportable 11/24/20 11:29 Hyposegmented Neuts Not Reportable 11/24/20 11:29 Hypogranular Neuts Not Reportable 11/24/20 11:29 Smudge Cells Not Reportable 11/24/20 11:29 Toxic Granulation Not Reportable 11/24/20 11:29 Toxic Vacuolation Not Reportable 11/24/20 11:29 Dohle Bodies Not Reportable 11/24/20 11:29 Pelger-Huet Anomaly Not Reportable 11/24/20 11:29 Katja Rods Not Reportable 11/24/20 11:29 Platelet Estimate Consistent w auto 11/24/20 11:29 Clumped Platelets Not Reportable 11/24/20 11:29 Plt Clumps, EDTA Not Reportable 11/24/20 11:29 Large Platelets Not Reportable 11/24/20 11:29 Giant Platelets Not Reportable 11/24/20 11:29 Platelet Satelliting Not Reportable 11/24/20 11:29 Plt Morphology Comment Not Reportable 11/24/20 11:29 RBC Morphology Normal 11/24/20 11:29 Dimorphic RBCs Not Reportable 11/24/20 11:29 Polychromasia Not Reportable 11/24/20 11:29 Hypochromasia Not Reportable 11/24/20 11:29 Poikilocytosis Not Reportable 11/24/20 11:29 Anisocytosis Not Reportable 11/24/20 11:29 Microcytosis Not Reportable 11/24/20 11:29 Macrocytosis Not Reportable 11/24/20 11:29 Spherocytes Not Reportable 11/24/20 11:29 Pappenheimer Bodies Not Reportable 11/24/20 11:29 Sickle Cells Not Reportable 11/24/20 11:29 Target Cells Not Reportable 11/24/20 11:29 Tear Drop Cells Not Reportable 11/24/20 11:29 Ovalocytes Not Reportable 11/24/20 11:29 Helmet Cells Not Reportable 11/24/20 11:29 Pires-[place] Bodies Not Reportable 11/24/20 11:29 [place] Rings Not Reportable 11/24/20 11:29 [place] Cells Not Reportable 11/24/20 11:29 Bite Cells Not Reportable 11/24/20 11:29 Crenated Cell Not Reportable 11/24/20 11:29 Elliptocytes Not Reportable 11/24/20 11:29 Acanthocytes (Spur) Not Reportable 11/24/20 11:29 Rouleaux Not Reportable 11/24/20 11:29 Hemoglobin C Crystals Not Reportable 11/24/20 11:29 Schistocytes Not Reportable 11/24/20 11:29 Malaria parasites Not Reportable 11/24/20 11:29 Ho Bodies Not Reportable 11/24/20 11:29 Hem Pathologist Commnt No 11/24/20 11:29 Sodium 137 mmol/L (137-145) 11/24/20 11:29 Potassium 3.8 mmol/L (3.6-5.0) 11/24/20 11:29 Chloride 102.5 mmol/L (98-107) 11/24/20 11:29 Carbon Dioxide 26 mmol/L (22-30) 11/24/20 11:29 Anion Gap 12 mmol/L 11/24/20 11:29 BUN 9 mg/dL (9-20) 11/24/20 11:29 Creatinine 0.7 mg/dL (0.8-1.3) L 11/24/20 11:29 Estimated GFR > 60 ml/min 11/24/20 11:29 BUN/Creatinine Ratio 13 % 11/24/20 11:29 Glucose 87 mg/dL (75-100) 11/24/20 11:29 POC Glucose 104 mg/dL (70-105) 11/24/20 02:34 Hemoglobin A1c 5.0 % (4-6) 11/24/20 11:29 Calcium 9.2 mg/dL (8.4-10.2) 11/24/20 11:29 Total Bilirubin 0.30 mg/dL (0.1-1.2) 11/24/20 11:29 AST 42 units/L (5-40) H 11/24/20 11:29 ALT 25 units/L (7-56) 11/24/20 11:29 Alkaline Phosphatase 69 units/L (35-129) 11/24/20 11:29 Total Protein 8.1 g/dL (6.3-8.2) 11/24/20 11:29 Albumin 3.7 g/dL (3.9-5) L 11/24/20 11:29 Albumin/Globulin Ratio 0.8 % 11/24/20 11:29 Triglycerides 74 mg/dL (2-149) 11/24/20 11:29 Cholesterol 111 mg/dL (50-199) 11/24/20 11:29 LDL Cholesterol Direct 67 mg/dL (50-130) 11/24/20 11:29 HDL Cholesterol 42 mg/dL (40-59) 11/24/20 11:29 Cholesterol/HDL Ratio 2.64 % 11/24/20 11:29 TSH 0.731 mlU/mL (0.270-4.200) 11/24/20 11:29 Coronavirus (PCR) Negative (Negative) 11/26/20 08:15 Last Vital Signs Temp 98.8 F 11/27/20 07:53 Pulse 103 H 11/27/20 07:53 Resp 20 11/27/20 07:53 BP 113/86 11/27/20 07:53 Pulse Ox 98 11/27/20 07:53
--- NOTE | 2020-11-27 10:23 | XRay Report ---
CHEST 1 VIEW INDICATION: r/o TB. COMPARISON: None FINDINGS: Support devices: None. Heart: Within normal limits. Lungs/Pleura: No acute air space or interstitial disease. No pleural effusion or pneumothorax. Additional findings: None. IMPRESSION: No acute findings. Signer Name: Tyler Damon Jr, MD Signed: 11/27/2020 10:18 AM Workstation Name: [id number]
[2020-11-27] MEDS: AMITRIPTYLINE 25 MG TAB PO SCH (21:01)
[2020-11-27] MEDS ORDERED: ARIPiprazole 10 MG TAB PO SCH (22:00)
--- NOTE | 2020-11-28 07:12 | Discharge Summary ---
Providers - Providers Date of Admission: 11/24/20 01:46 Date of discharge: 11/28/20 Attending physician: PRASANTH COLLADO MD 11/24/20 06:11 Consult to Dietitian/Nutrition [CONS] Routine Physician Instructions: Reason For Exam: Reason for Consult: Poor oral intake 11/24/20 09:02 Consult to Physician [CONS] Routine Comment: Consulting Provider: MAT CAMERON Physician Instructions: Reason For Exam: manage medical conditions [facility] Reason for admission: suicidal ideation Admitting Diagnosis: F31.32 - BIPOLAR DISORDER, CURRENT EPISODE DEPRESSED, MODERATE Condition: Stable Hospital course: The patient was provided inpatient psychiatric treatment with safe and supportive environment, group/individual therapy, psychiatric medication, medication adjustment, adverse effect monitor, medical evaluation, medical chandrika tment, social service assessment, social support meeting, placement assessment and psycho-education. The patients mood, cognition, behavior, motivation, compliance to treatment and appreciation on family/social support are improved and stabilized. At the time of discharge, the patient had no suicidal ideas, no homicidal ideas, no aggressive thoughts, no endangering behavior and no debilitating adverse effects. The patient agreed on the treatment plan, understood the risk, benefit, alternative treatment, potential consequence of no treatment, and gave informed consent. Progress Note: 11/25/2020: The patient was seen today, he is sleeping but easily arouses. He endorses suicidal thoughts with plans to jump off a bridge. He denies hallucinations. 11/26/2020: The patient was seen today. He is lying in bed. He is vague in describing how he feels. He says "okay" when asked. I asked was he suicidal still, he says "yea." I asked did he have a plan, he says "yea the same thing." He denies hallucinations. 11/27/2020: The patient was seen today. He is asking questions about his discharge. He says he'd like a personal usp. He says he has "to watch his Cd4 and take his meds." He says "it affects other stuff." The patient denies SI/HI but stats he still hears voices at times, but they are not saying anything negative. The patient will discharge tomorrow once outpatient resources are in place to ensue continuity of mental wellness. Disposition: 30 STILL A PATIENT Allergies/Adverse Reactions: Allergies Sulfa (Sulfonamide Antibiotics) Allergy (Intermediate, Verified 11/24/20 02:05) Rash Vital Signs: Last Vital Signs Temp 98.6 F 11/27/20 19:24 Pulse 75 11/27/20 19:24 Resp 16 11/27/20 19:24 BP 119/76 11/27/20 19:24 Pulse Ox 96 11/27/20 19:24 Last Lab: Laboratory Last Values WBC 4.0 K/mm3 (4.5-11.0) L 11/24/20 11:29 RBC 4.90 M/mm3 (3.65-5.03) 11/24/20 11:29 Hgb 15.5 gm/dl (11.8-15.2) H 11/24/20 11:29 Hct 44.6 % (35.5-45.6) 11/24/20 11:29 MCV 91 fl (84-94) 11/24/20 11:29 MCH 32 pg (28-32) 11/24/20 11:29 MCHC 35 % (32-34) H 11/24/20 11:29 RDW 15.5 % (13.2-15.2) H 11/24/20 11:29 Plt Count 169 K/mm3 (140-440) 11/24/20 11:29 Add Manual Diff Complete 11/24/20 11:29 Total Counted 100 11/24/20 11:29 Seg Neuts % (Manual) 62.0 % (40.0-70.0) 11/24/20 11:29 Lymphocytes % (Manual) 23.0 % (13.4-35.0) 11/24/20 11:29 Reactive Lymphs % (Man) 2.0 % 11/24/20 11:29 Monocytes % (Manual) 13.0 % (0.0-7.3) H 11/24/20 11:29 Nucleated RBC % Not Reportable 11/24/20 11:29 Seg Neutrophils # Man 2.5 K/mm3 (1.8-7.7) 11/24/20 11:29 Band Neutrophils # 0.0 K/mm3 11/24/20 11:29 Lymphocytes # (Manual) 0.9 K/mm3 (1.2-5.4) L 11/24/20 11:29 Abs React Lymphs (Man) 0.1 K/mm3 11/24/20 11:29 Monocytes # (Manual) 0.5 K/mm3 (0.0-0.8) 11/24/20 11:29 Eosinophils # (Manual) 0.0 K/mm3 (0.0-0.4) 11/24/20 11:29 Basophils # (Manual) 0.0 K/mm3 (0.0-0.1) 11/24/20 11:29 Metamyelocytes # 0.0 K/mm3 11/24/20 11:29 Myelocytes # 0.0 K/mm3 11/24/20 11:29 Promyelocytes # 0.0 K/mm3 11/24/20 11:29 Blast Cells # 0.0 K/mm3 11/24/20 11:29 WBC Morphology Not Reportable 11/24/20 11:29 Hypersegmented Neuts Not Reportable 11/24/20 11:29 Hyposegmented Neuts Not Reportable 11/24/20 11:29 Hypogranular Neuts Not Reportable 11/24/20 11:29 Smudge Cells Not Reportable 11/24/20 11:29 Toxic Granulation Not Reportable 11/24/20 11:29 Toxic Vacuolation Not Reportable 11/24/20 11:29 Dohle Bodies Not Reportable 11/24/20 11:29 Pelger-Huet Anomaly Not Reportable 11/24/20 11:29 Katja Rods Not Reportable 11/24/20 11:29 Platelet Estimate Consistent w auto 11/24/20 11:29 Clumped Platelets Not Reportable 11/24/20 11:29 Plt Clumps, EDTA Not Reportable 11/24/20 11:29 Large Platelets Not Reportable 11/24/20 11:29 Giant Platelets Not Reportable 11/24/20 11:29 Platelet Satelliting Not Reportable 11/24/20 11:29 Plt Morphology Comment Not Reportable 11/24/20 11:29 RBC Morphology Normal 11/24/20 11:29 Dimorphic RBCs Not Reportable 11/24/20 11:29 Polychromasia Not Reportable 11/24/20 11:29 Hypochromasia Not Reportable 11/24/20 11:29 Poikilocytosis Not Reportable 11/24/20 11:29 Anisocytosis Not Reportable 11/24/20 11:29 Microcytosis Not Reportable 11/24/20 11:29 Macrocytosis Not Reportable 11/24/20 11:29 Spherocytes Not Reportable 11/24/20 11:29 Pappenheimer Bodies Not Reportable 11/24/20 11:29 Sickle Cells Not Reportable 11/24/20 11:29 Target Cells Not Reportable 11/24/20 11:29 Tear Drop Cells Not Reportable 11/24/20 11:29 Ovalocytes Not Reportable 11/24/20 11:29 Helmet Cells Not Reportable 11/24/20 11:29 [place] Bodies Not Reportable 11/24/20 11:29 [place] Rings Not Reportable 11/24/20 11:29 [place] Cells Not Reportable 11/24/20 11:29 Bite Cells Not Reportable 11/24/20 11:29 Crenated Cell Not Reportable 11/24/20 11:29 Elliptocytes Not Reportable 11/24/20 11:29 Acanthocytes (Spur) Not Reportable 11/24/20 11:29 Rouleaux Not Reportable 11/24/20 11:29 Hemoglobin C Crystals Not Reportable 11/24/20 11:29 Schistocytes Not Reportable 11/24/20 11:29 Malaria parasites Not Reportable 11/24/20 11:29 Ho Bodies Not Reportable 11/24/20 11:29 Hem Pathologist Commnt No 11/24/20 11:29 Sodium 137 mmol/L (137-145) 11/24/20 11:29 Potassium 3.8 mmol/L (3.6-5.0) 11/24/20 11:29 Chloride 102.5 mmol/L (98-107) 11/24/20 11:29 Carbon Dioxide 26 mmol/L (22-30) 11/24/20 11:29 Anion Gap 12 mmol/L 11/24/20 11:29 BUN 9 mg/dL (9-20) 11/24/20 11:29 Creatinine 0.7 mg/dL (0.8-1.3) L 11/24/20 11:29 Estimated GFR > 60 ml/min 11/24/20 11:29 BUN/Creatinine Ratio 13 % 11/24/20 11:29 Glucose 87 mg/dL (75-100) 11/24/20 11:29 POC Glucose 104 mg/dL (70-105) 11/24/20 02:34 Hemoglobin A1c 5.0 % (4-6) 11/24/20 11:29 Calcium 9.2 mg/dL (8.4-10.2) 11/24/20 11:29 Total Bilirubin 0.30 mg/dL (0.1-1.2) 11/24/20 11:29 AST 42 units/L (5-40) H 11/24/20 11:29 ALT 25 units/L (7-56) 11/24/20 11:29 Alkaline Phosphatase 69 units/L (35-129) 11/24/20 11:29 Total Protein 8.1 g/dL (6.3-8.2) 11/24/20 11:29 Albumin 3.7 g/dL (3.9-5) L 11/24/20 11:29 Albumin/Globulin Ratio 0.8 % 11/24/20 11:29 Triglycerides 74 mg/dL (2-149) 11/24/20 11:29 Cholesterol 111 mg/dL (50-199) 11/24/20 11:29 LDL Cholesterol Direct 67 mg/dL (50-130) 11/24/20 11:29 HDL Cholesterol 42 mg/dL (40-59) 11/24/20 11:29 Cholesterol/HDL Ratio 2.64 % 11/24/20 11:29 TSH 0.731 mlU/mL (0.270-4.200) 11/24/20 11:29 Coronavirus (PCR) Negative (Negative) 11/26/20 08:15 Core Measure Documentation - Palliative Care Palliative Care/ Comfort Measures: Not Applicable - Core Measures Any of the following diagnoses?: none - VTE Discharge Requirements Deep Vein Thrombosis/Pulmonary Embolism Present on Admission: No Exam - Constitutional Vitals: Temp Pulse Resp BP Pulse Ox 98.6 F 75 16 119/76 96 11/27/20 19:24 11/27/20 19:24 11/27/20 19:24 11/27/20 19:24 11/27/20 19:24 Plan Activity: advance as tolerated Weight Bearing Status: Weight Bear as Tolerated Diet: regular Care Plan Goals: Maintain good and stable mental health. Plan of Treatment: The patient should be compliant with medications, not to use drugs and not to drink alcohol.The patient understands that if suicidal ideas, homicidal ideas, or any endangering thoughts arise, the patient should immediately seek for emergent assistance including but not limited to crisis hot line and emergency room. Follow up with outpatient Psychiatrist and PCP within 7 - 14 days of discharge. Follow up with: JACQUI PACKER MD [Primary Care Provider] - 7 Days Prescriptions: ARIPiprazole [Abilify TAB] 10 mg PO QHS 30 Days #30 tablet
[2020-11-28 09:16] VITALS: BP 120/86
[2020-11-28] MEDS: BICTEGRAV/EMTRICIT/TENOFOV ALA (NF) TAB PO SCH (09:16)
[2020-11-28] MEDS: CELECOXIB 200 MG CAP PO SCH (09:17)
[2020-11-28] MEDS: PANTOPRAZOLE 40 MG TAB PO SCH (09:17)
[2020-11-28] MEDS: NICOTINE 21 MG/24 HR PATCH TD SCH (09:18)
[2020-11-28] MEDS: DAPSONE 100 MG PO SCH (09:18)
[2020-11-28] MEDS: FLUCONAZOLE 200 MG TAB PO SCH (09:29)
== END 2020-11-28 10:05 | disposition home or self-care (01) | DRG 885 ==
LOC: 5A 01:46
PROVIDERS: ADMIT Psychiatry & Neurology Psychiatry; ATTEND Psychiatry & Neurology Psychiatry
DX: F31.9 Bipolar disorder, unspecified (principal); F19.10 Other psychoactive substance abuse, uncomplicated; M25.569 Pain in unspecified knee; Z88.2 Allergy status to sulfonamides; Z79.899 Other long term (current) drug therapy
CPT/HCPCS: 36415; 71045; 80048; 80053; 80061; 80307; 80320; 81001; 82962; 83036; 84443; 85007; 85025; 99285; G0378; G0480; U0003

== ENCOUNTER 2021-11-30 13:37 | Emergency (ER) | payer MEDICAID ==
--- NOTE | 2021-11-30 15:05 | Emergency Department Report ---
Blank Doc - Documentation Documentation: 56-year-old male that presents with abdominal pain near PEG tube. 1- This is a initial triage assessment/medical screening only. Full assessment and work-up will be completed once the patient is in proper hospital gown, ED bed and in a private room setting. This initial assessment/diagnostic orders/clinical plan/ treatment(s) is/are subject to change based on pt's health status, clinical progression and re-assessment by fellow clinical providers in the ED. Further treatment and workup at subsequent clinical providers discretion. Patient/guardians urged not to elope from ED as their condition may be serious if not clinically assessed and managed. 2-labs 3-UA The patient was evaluated in the emergency department for symptoms described in the history of present illness. He/she was evaluated in the context of the global COVID-19 pandemic, which necessitated consideration that the patient might be at risk for infection with the virus that causes COVID-19. Institutional protocols and algorithms that pertain to the evaluation of patients at risk for COVID-19 are in a state of rapid change based on information released by regulatory bodies including the CDC and federal and state organizations. These policies and algorithms were followed during the patient's care in the emergency department. Please note that these policies, procedures and recommendations changed on a rapid basis.
--- NOTE | 2021-11-30 18:38 | Cat Scan Report ---
CT ABDOMEN WITHOUT CONTRAST INDICATION / CLINICAL INFORMATION: ABDOMINAL PAIN AROUND PEG SITE. TECHNIQUE: Axial CT images were obtained through the abdomen without contrast. All CT scans at this [facility] are performed using CT dose reduction for ALARA by means of automated exposure control. COMPARISON: None available. FINDINGS: LOWER CHEST: 1 there is near is masslike consolidation in the left lower lobe this area measures appr oximately 5.4 cm in diameter. There is a left pleural effusion. LIVER: Liver is enlarged measuring approximately 17 cm in length. No focal hepatic lesions are seen. GALLBLADDER: No significant abnormality. BILE DUCTS: No significant abnormality. PANCREAS: No significant abnormality. SPLEEN: Spleen is enlarged measuring 14.4 cm in length. There is a hypodense lesion in the superior s pleen is indeterminate. This measures 1.9 cm. ADRENALS: No significant abnormality. RIGHT KIDNEY / URETER: No significant abnormality. LEFT KIDNEY / URETER: No significant abnormality. STOMACH / SMALL BOWEL: There is a PEG tube in the stomach. The tube appears satisfactorily positioned entering the stomach at the level the junction of the body and antrum. There are no abnormal fluid c ollections associated with this. There is no extraluminal gas associated with the PEG tube. COLON: No significant abnormality. APPENDIX: Not visualized. PERITONEUM: No free fluid. No free air. No fluid collection. LYMPH NODES: No significant adenopathy. AORTA / ARTERIES: Mild atherosclerotic calcification without acute abnormality. IVC / VEINS: No significant abnormality. ADDITIONAL FINDINGS: None. SKELETAL SYSTEM: There is mild superior end plate compression of L1 which is age indeterminate does n ot appear to be acute IMPRESSION: 1. PEG tube appears in satisfactory position. No inflammation or fluid collections are seen around th e tube. 2. There is mild hepatosplenomegaly. There is a small low-density lesion in the superior aspect of th e spleen which is indeterminate. 3. There is enteric masslike consolidation in the left lower lobe the lung measuring approximately 5. 4 cm. This could represent focal pneumonia. This could represent rounded atelectasis. This could repr esent percent neoplasm. 4. There is a left pleural effusion. Signer Name: Taiwo Nath MD Signed: 11/30/2021 6:34 PM Workstation Name: [id number]
[2021-11-30 18:40] LABS: Basophils % (Auto) 0.1 % (0.0-1.8); Eosinophils # (Auto) 0.1 K/mm3 (0.0-0.4); Eosinophils % (Auto) 0.8 % (0.0-4.3); Hemoglobin 6.5 gm/dl (11.8-15.2); Lymphocytes # (Auto) 0.5 K/mm3 (1.2-5.4); Lymphocytes % (Auto) 6.2 % (13.4-35.0); Mean Corpuscular HGB Conc 33 % (32-34); Mean Corpuscular Volume 91 fl (84-94); Monocytes # (Auto) 0.6 K/mm3 (0.0-0.8); Monocytes % (Auto) 7.2 % (0.0-7.3); Platelet Count 236 K/mm3 (140-440); Red Blood Count 2.16 M/mm3 (3.65-5.03); Red Cell Distribution Width 19.4 % (13.2-15.2)
[2021-11-30 18:57] LABS: Mucus,Urine FEW /HPF; RBC,Urine < 1.0 /HPF (0.0-6.0); WBC,Urine < 1.0 /HPF (0.0-6.0)
[2021-11-30 19:02] LABS: Alanine Aminotransferase 9 units/L (7-56); Albumin 3.6 g/dL (3.9-5); BUN/Creatinine Ratio 16; Blood Urea Nitrogen 14 mg/dL (9-20); Calcium 8.7 mg/dL (8.4-10.2); Hemolysis Index 1
[2021-11-30 19:12] LABS: Hematocrit 19.5 % (35.5-45.6)
[2021-11-30] MEDS ORDERED: ACETAMINOPHEN W/CODEINE 300-30 MG TAB PO ONE (19:17)
[2021-11-30 19:18] LABS: Color,Urine Amber (Yellow)
--- NOTE | 2021-11-30 19:22 | Emergency Department Report ---
ED Abdominal Pain HPI - General Chief Complaint: Abdominal Pain Stated Complaint: STOMACH PAIN Time Seen by Provider: 11/30/21 15:04 Source: patient Mode of arrival: Ambulatory Limitations: No Limitations - History of Present Illness Initial Comments: 56-year-old black male with a past medical history of esophageal cancer who is status post trach and PEG 3 months ago presents to the emergency department for evaluation of 1 day history of abdominal pain. He states that he has significant pain to the area around the G-tube. He states that he has had some drainage around his G-tube area as well. He denies fever, nausea, vomiting, diarrhea, and penile discharge. MD Complaint: abdominal pain -: Gradual, days(s) (1) Location: epigastric Radiation: none Migration to: no migration Severity scale (0 -10): 10 Quality: aching Consistency: constant Associated Symptoms: denies: nausea, vomiting, diarrhea, fever, chills, dysuria, hematemesis, hematochezia, melena, hematuria, anorexia, syncope - Related Data Home Medications Medication Instructions Recorded Confirmed Last Taken ARIPiprazole [Abilify TAB] 5 mg PO HS 11/24/20 11/24/20 Unknown Acetaminophen [Tylenol] 650 mg PO Q6HR PRN 11/24/20 11/24/20 Unknown Amitriptyline [Elavil] 25 mg PO QHS 11/24/20 11/24/20 Unknown Bictegrav/Emtricit/Tenofov Ala 1 each PO DAILY 11/24/20 11/24/20 Unknown [Biktarvy 50-200-25 mg Tablet] Dapsone 100 mg PO DAILY 11/24/20 11/24/20 Unknown Fluconazole [Diflucan TAB] 200 mg PO QDAY 11/24/20 11/24/20 Unknown Fluticasone [Flonase] 1 spray NS QDAY PRN 11/24/20 11/24/20 Unknown Gabapentin 300 mg PO TID 11/24/20 11/24/20 Unknown Ibuprofen [Motrin 400 MG tab] 400 mg PO Q6HR PRN 11/24/20 11/24/20 Unknown Omeprazole 40 mg PO DAILY 11/24/20 11/24/20 Unknown Previous Rx's Medication Instructions Recorded Last Taken Type ARIPiprazole [Abilify TAB] 10 mg PO QHS 30 Days #30 tablet 11/28/20 Unknown Rx Acetaminophen [Acetaminophen TAB] 650 mg PO Q6H PRN tablet 11/28/20 Unknown Rx Pantoprazole [Protonix TAB] 40 mg PO DAILY tablet 11/28/20 Unknown Rx Acetaminophen/Codeine [Tylenol 1 tab PO Q6H PRN #3 tab 11/30/21 Unknown Rx /Codeine # 3 tab] Allergies Allergy/AdvReac Type Severity Reaction Status Date / Time Sulfa (Sulfonamide Allergy Intermediate Rash Verified 11/24/20 02:05 Antibiotics) ED Review of Systems ROS: Stated complaint: STOMACH PAIN Other details as noted in HPI Comment: All other systems reviewed and negative Constitutional: denies: chills, fever Respiratory: denies: shortness of breath Cardiovascular: denies: chest pain, palpitations Gastrointestinal: abdominal pain. denies: nausea, vomiting, diarrhea, hematemesis, melena, hematochezia Genitourinary: denies: urgency, dysuria Musculoskeletal: denies: back pain Neurological: denies: headache ED Past Medical Hx - Past Medical History Hx Congestive Heart Failure: No Hx Diabetes: No Hx Renal Disease: No Hx Arthritis: No Hx Seizures: No Hx Psychiatric Treatment: Yes Hx Asthma: No Hx COPD: No Hx Dementia: No - Surgical History Hx Cholecystectomy: No Hx Appendectomy: No - Social History Smoking Status: Former Smoker - Medications Home Medications: Home Medications Medication Instructions Recorded Confirmed Last Taken Type ARIPiprazole [Abilify TAB] 5 mg PO HS 11/24/20 11/24/20 Unknown History Acetaminophen [Tylenol] 650 mg PO Q6HR PRN 11/24/20 11/24/20 Unknown History Amitriptyline [Elavil] 25 mg PO QHS 11/24/20 11/24/20 Unknown History Bictegrav/Emtricit/Tenofov Ala 1 each PO DAILY 11/24/20 11/24/20 Unknown History [Biktarvy 50-200-25 mg Tablet] Dapsone 100 mg PO DAILY 11/24/20 11/24/20 Unknown History Fluconazole [Diflucan TAB] 200 mg PO QDAY 11/24/20 11/24/20 Unknown History Fluticasone [Flonase] 1 spray NS QDAY PRN 11/24/20 11/24/20 Unknown History Gabapentin 300 mg PO TID 11/24/20 11/24/20 Unknown History Ibuprofen [Motrin 400 MG tab] 400 mg PO Q6HR PRN 11/24/20 11/24/20 Unknown History Omeprazole 40 mg PO DAILY 11/24/20 11/24/20 Unknown History ARIPiprazole [Abilify TAB] 10 mg PO QHS 30 Days #30 tablet 11/28/20 Unknown Rx Acetaminophen [Acetaminophen TAB] 650 mg PO Q6H PRN tablet 11/28/20 Unknown Rx Pantoprazole [Protonix TAB] 40 mg PO DAILY tablet 11/28/20 Unknown Rx Acetaminophen/Codeine [Tylenol 1 tab PO Q6H PRN #3 tab 11/30/21 Unknown Rx /Codeine # 3 tab] ED Physical Exam - General Limitations: No Limitations General appearance: alert, in no apparent distress - Head Head exam: Present: atraumatic, normocephalic - Eye Eye exam: Present: normal appearance. Absent: conjunctival injection, periorbital swelling, periorbital tenderness - Neck Neck exam: Present: tenderness. Absent: normal inspection (Trach tube in place), lymphadenopathy - Respiratory Respiratory exam: Present: rhonchi. Absent: respiratory distress, chest wall tenderness - Cardiovascular Cardiovascular Exam: Present: tachycardia, normal heart sounds - GI/Abdominal GI/Abdominal exam: Present: soft, tenderness (Generalized), normal bowel sounds. Absent: distended, guarding, rebound, rigid - Extremities Exam Extremities exam: Present: normal inspection, full ROM, normal capillary refill. Absent: pedal edema, joint swelling, calf tenderness - Back Exam Back exam: Present: normal inspection. Absent: CVA tenderness (R), CVA tenderness (L) - Neurological Exam Neurological exam: Present: alert, oriented X3, CN II-XII intact, normal gait - Psychiatric Psychiatric exam: Present: normal affect, normal mood - Skin Skin exam: Present: warm, dry, normal color - Expanded Skin Exam Expanded 1 - PEG tube in place. PEG noted to be capped. Minimal erythema noted around insertion site with small amountof drainage. 2 - Trach tube in place. Trach patent ED Course Vital Signs 11/30/21 11/30/21 11/30/21 15:04 15:40 18:00 Temperature 98.9 F Pulse Rate 107 H Respiratory 14 Rate Blood Pressure 180/89 [Right] O2 Sat by Pulse 97 Oximetry O2 Sat by Pulse 97 96 Oximetry [ Assessment] 11/30/21 20:48 Temperature Pulse Rate 92 H Respiratory 12 Rate Blood Pressure 166/82 [Right] O2 Sat by Pulse 100 Oximetry O2 Sat by Pulse Oximetry [ Assessment] ED Medical Decision Making - Lab Data Result diagrams: 11/30/21 18:08 11/30/21 18:08 - Radiology Data Radiology results: report reviewed, image reviewed CT abdomen without contrast: FINDINGS: LOWER CHEST: 1 there is near is masslike consolidation in the left lower lobe this area measures approximately 5.4 cm in diameter. There is a left pleural effusion. LIVER: Liver is enlarged measuring approximately 17 cm in length. No focal hepatic lesions are seen. GALLBLADDER: No significant abnormality. BILE DUCTS: No significant abnormality. PANCREAS: No significant abnormality. SPLEEN: Spleen is enlarged measuring 14.4 cm in length. There is a hypodense lesion in the superior spleen is indeterminate. This measures 1.9 cm. ADRENALS: No significant abnormality. RIGHT KIDNEY / URETER: No significant abnormality. LEFT KIDNEY / URETER: No significant abnormality. STOMACH / SMALL BOWEL: There is a PEG tube in the stomach. The tube appears satisfactorily positioned entering the stomach at the level the junction of the body and antrum. There are no abnormal fluid collections associated with this. There is no extraluminal gas associated with the PEG tube. COLON: No significant abnormality. APPENDIX: Not visualized. PERITONEUM: No free fluid. No free air. No fluid collection. LYMPH NODES: No significant adenopathy. AORTA / ARTERIES: Mild atherosclerotic calcification without acute abnormality. IVC / VEINS: No significant abnormality. ADDITIONAL FINDINGS: None. SKELETAL SYSTEM: There is mild superior end plate compression of L1 which is age indeterminate does not appear to be acute IMPRESSION: 1. PEG tube appears in satisfactory position. No inflammation or fluid collections are seen around the tube. 2. There is mild hepatosplenomegaly. There is a small low-density lesion in the superior aspect of the spleen which is indeterminate. 3. There is enteric masslike consolidation in the left lower lobe the lung measuring approximately 5.4 cm. This could represent focal pneumonia. This could represent rounded atelectasis. This could represent percent neoplasm. 4. There is a left pleural effusion. - Medical Decision Making 56-year-old black male with a past medical history of esophageal cancer who is status post trach and PEG 3 months ago presents to the emergency department for evaluation of 1 day history of abdominal pain. He states that he has significan t pain to the area around the G-tube. He states that he has had some drainage around his G-tube area as well. He denies fever, nausea, vomiting, diarrhea, and penile discharge. Patient noted to be anemic with pleural effusion and mass versus pneumonia in the lungs. Results were reviewed with patient in detail and he was advised of recommendation for admission. Patient stated that he did not want to be admitted here because he has a cancer doctor whom he follows up with routinely and has an appointment on Tuesday. Patient has denied admission and is requesting medication for pain only. Patient was advised of risk and benefits of leaving but still wants to leave. Patient will be discharged AMA with a prescription for pain medicine and advised to follow-up with his oncologist on Tuesday as planned. Laboratory Last Values WBC 8.6 K/mm3 (4.5-11.0) 11/30/21 18:08 RBC 2.16 M/mm3 (3.65-5.03) L 11/30/21 18:08 Hgb 6.5 gm/dl (11.8-15.2) L 11/30/21 18:08 Hct 19.5 % (35.5-45.6) L* 11/30/21 18:08 MCV 91 fl (84-94) 11/30/21 18:08 MCH 30 pg (28-32) 11/30/21 18:08 MCHC 33 % (32-34) 11/30/21 18:08 RDW 19.4 % (13.2-15.2) H 11/30/21 18:08 Plt Count 236 K/mm3 (140-440) 11/30/21 18:08 Lymph % (Auto) 6.2 % (13.4-35.0) L 11/30/21 18:08 Wilkin % (Auto) 7.2 % (0.0-7.3) 11/30/21 18:08 Eos % (Auto) 0.8 % (0.0-4.3) 11/30/21 18:08 Baso % (Auto) 0.1 % (0.0-1.8) 11/30/21 18:08 Lymph # (Auto) 0.5 K/mm3 (1.2-5.4) L 11/30/21 18:08 Wilkin # (Auto) 0.6 K/mm3 (0.0-0.8) 11/30/21 18:08 Eos # (Auto) 0.1 K/mm3 (0.0-0.4) 11/30/21 18:08 Baso # (Auto) 0.0 K/mm3 (0.0-0.1) 11/30/21 18:08 Seg Neutrophils % 85.7 % (40.0-70.0) H 11/30/21 18:08 Seg Neutrophils # 7.4 K/mm3 (1.8-7.7) 11/30/21 18:08 Sodium 143 mmol/L (137-145) 11/30/21 18:08 Potassium 3.4 mmol/L (3.6-5.0) L 11/30/21 18:08 Chloride 106.9 mmol/L (98-107) 11/30/21 18:08 Carbon Dioxide 24 mmol/L (22-30) 11/30/21 18:08 Anion Gap 16 mmol/L 11/30/21 18:08 BUN 14 mg/dL (9-20) 11/30/21 18:08 Creatinine 0.9 mg/dL (0.8-1.3) 11/30/21 18:08 Estimated GFR > 60 ml/min 11/30/21 18:08 BUN/Creatinine Ratio 16 % 11/30/21 18:08 Glucose 86 mg/dL (75-100) 11/30/21 18:08 Calcium 8.7 mg/dL (8.4-10.2) 11/30/21 18:08 Total Bilirubin 0.70 mg/dL (0.1-1.2) 11/30/21 18:08 AST 14 units/L (5-40) 11/30/21 18:08 ALT 9 units/L (7-56) 11/30/21 18:08 Alkaline Phosphatase 77 units/L (35-129) 11/30/21 18:08 Total Protein 7.4 g/dL (6.3-8.2) 11/30/21 18:08 Albumin 3.6 g/dL (3.9-5) L 11/30/21 18:08 Albumin/Globulin Ratio 0.9 % 11/30/21 18:08 Lipase 15 units/L (13-60) 11/30/21 18:08 Urine Color Genoveva (Yellow) 11/30/21 17:58 Urine Turbidity Clear (Clear) 11/30/21 17:58 Specific [place] (Man) 1.020 (1.003-1.030) 11/30/21 17:58 Ur Protein (Man) 2+ mg/dL (Negative) 11/30/21 17:58 Ur Ketones (Man) Negative (Negative) 11/30/21 17:58 Urine Bilirubin (Man) Moderate (Negative) 11/30/21 17:58 Urine WBC (Auto) < 1.0 /HPF (0.0-6.0) 11/30/21 17:58 Urine RBC (Auto) < 1.0 /HPF (0.0-6.0) 11/30/21 17:58 U Epithel Cells (Auto) < 1.0 /HPF (0-13.0) 11/30/21 17:58 Urine RBC (Manual) Negative (Negative) 11/30/21 17:58 Urine Mucus Few /HPF 11/30/21 17:58 Critical care attestation.: If time is entered above; I have spent that time in minutes in the direct care of this critically ill patient, excluding procedure time. ED Disposition Clinical Impression: Left against medical advice Disposition: LEFT AGAINST MEDICAL ADVICE Is pt being admited?: No Does the pt Need Aspirin: No Condition: Stable Additional Instructions: Follow-up with your oncologist on Tuesday as planned. Return to the emergency department if you have worsening symptoms or as needed. Prescriptions: Acetaminophen/Codeine [Tylenol /Codeine # 3 tab] 1 tab PO Q6H PRN #3 tab PRN Reason: Pain , Severe (7-10) Referrals: TONY MAR MD [Primary Care Provider] - 3-5 Days Time of Disposition: 19:21
[2021-11-30 20:48] VITALS: BP 166/82
== END 2021-12-01 12:05 | disposition left against medical advice (07) ==
LOC: ED 13:37
DX: R10.13 Epigastric pain (principal); Z53.29 Procedure and treatment not carried out because of patient's decision for other reasons; Z87.891 Personal history of nicotine dependence; Z88.1 Allergy status to other antibiotic agents
CPT/HCPCS: 36415; 74150; 80053; 81001; 83690; 85025; 99284